=== PATIENT | male | born 1955 | race Caucasian/White ===

== ENCOUNTER 2020-06-03 10:39 | Outpatient (CLI) | payer BC, SELFPAY ==
--- NOTE | ~2020-06-03 | US_ITS ---
EXAMINATION: US venous doppler LE EXAM DATE: 06/03/2020 11:17 INDICATION: Right leg pain and swelling. TECHNIQUE: Multiple grayscale, color flow and Doppler images of the right lower extremity deep venous system obtained and reviewed. Comparison is made to prior examination from 05/02/2014. FINDINGS: RIGHT SIDE Common femoral: -------- Normal. Profunda femoral: ------- Normal. Femoral: Normal. Popliteal: Normal. Posterior tibial: --------- Normal. Peroneal: Normal. Gastrocnemius: Thrombosed. Soleus: Paired, both thrombosed. Greater saphenous: -----Nonocclusive thrombus. Lesser saphenous: ------ Not visualized. IMPRESSION: 1. Positive for right calf DVT. 2. Nonocclusive greater saphenous SVT. Reviewed, dictated and finalized at location A.
== END 2020-06-03 10:40 | disposition home or self-care (01) ==
LOC: ANHIMG 10:41
PROVIDERS: PCP Family Medicine; Visit Provider Orthopaedic Surgery
DX: R60.0 Localized edema (principal); I82.461 Acute embolism and thrombosis of right calf muscular vein
CPT/HCPCS: 93971

== ENCOUNTER 2020-06-03 11:46 | Emergency (ER) | payer BC, SELFPAY ==
[2020-06-03 11:54] VITALS: BP 154/92; PULSE 77; RESP 17; TEMP 37.1; O2SAT 100
[2020-06-03 12:17] LABS: Basophils Absolute Auto 0.1 K/mm3 (0.0-0.1); Basophils Percent Auto 0.8 % (0.2-1.2); Eosinophils Absolute Auto 0.2 K/mm3 (0-0.3); Eosinophils Percent Auto 1.9 % (0-4.4); Hematocrit 44.3 % (42.0-52.0); Hemoglobin 14.8 g/dL (14.0-18.0); Immature Granulocyte Absolute 0.02 K/mm3 (0.00-0.031); Immature Granulocyte Percent A 0.3 % (0-0.5); Lymphocytes Absolute Auto 2.27 K/mm3 (0.9-3.2); Lymphocytes Percent Auto 29.3 % (18.3-44.2); Mean Corpuscular HGB Conc 33.4 g/dl (32-36); Mean Corpuscular Hemoglobin 30.3 pg (26-34); Mean Corpuscular Volume 90.8 fl (80-100); Monocytes Absolute Auto 0.8 K/mm3 (0.1-0.6); Monocytes Percent Auto 9.8 % (2.6-8.5); Neutrophils Absolute Auto 4.5 K/mm3 (1.3-6.7); Neutrophils Percent Auto 57.9 % (45.5-73.1); Platelet Count Result 207 k/mm3 (150-375); Red Blood Count 4.88 M/mm3 (4.6-6.20); Red Cell Distribution Width 13.6 % (11.5-14.5); White Blood Count 7.8 K/mm3 (4.5-10.0)
[2020-06-03 12:28] LABS: INR 0.9; Partial Thromboplastin Time 30.3 SECONDS (22.3-36.8); Prothrombin Time 12.2 Seconds (11.1-14.7)
[2020-06-03 12:30] VITALS: BP 156/70; PULSE 72; RESP 14; O2SAT 98
[2020-06-03 12:30] LABS: Anion Gap 10.7 mmol/L (7-16); Blood Urea Nitrogen 12 mg/dL (9-20); Calcium 9.8 mg/dL (8.4-10.2); Carbon Dioxide 24 mmol/L (22-30); Chloride 107 mmol/L (98-107); Estimated CRCL calculation 102 ml/min; Estimated Glomerular Filt Rate > 60; Glucose 99 mg/dL (75-110); Potassium 4.7 mmol/L (3.4-5.0); Sodium 137 mmol/L (137-145)
--- NOTE | 2020-06-03 12:30 | ED.GENADULT ---
HPI - General Adult General Chief complaint: Unspecified <Bennett Holloway PA-C - Last Filed: 06/03/20 13:49> Stated complaint: dx with dvt [place] from [place] <Bnenett Holloway PA-C - Last Filed: 06/03/20 13:49> Time Seen by Provider: 06/03/20 11:50 <Bennett Holloway PA-C - Last Filed: 06/03/20 13:49> Source: patient <Bennett Holloway PA-C - Last Filed: 06/03/20 13:49> Mode of arrival: ambulatory <Bennett Holloway PA-C - Last Filed: 06/03/20 13:49> Limitations: no limitations <Bennett Holloway PA-C - Last Filed: 06/03/20 13:49> History of Present Illness HPI narrative: Patient is a 64-year-old male who presents to emergency department for evaluation of DVT in the right leg diagnosed in the imaging center patient notes that he has been having pain in this leg and was following with orthopedist for evaluation of his pain patient notes aching pain made worse with touch and activity patient otherwise resting comfortably in the room upon arrival in no distress denies any chest pain numbness tingling or other complaints <Bennett Holloway PA-C - Last Filed: 06/03/20 13:49> Related Data Home medications: Home Medications Medication Instructions Recorded Confirmed lisinopril 12/08/19 <Bennett Holloway PA-C - Last Filed: 06/03/20 13:49> Allergies/adverse reactions: Allergies Allergy/AdvReac Type Severity Reaction Status Date / Time No Known Allergies Allergy Unverified 10/16/17 06:06 <Bennett Holloway PA-C - Last Filed: 06/03/20 13:49> Review of Systems Review of Systems: All systems reviewed & are unremarkable except as noted in HPI and below <Bennett Holloway PA-C - Last Filed: 06/03/20 13:49> [facility] Past Medical History Medical History: Medical History (Updated 06/03/20 @ 12:33 by Bennett Holloway PA-C) Hypertension <Bennett Holloway PA-C - Last Filed: 06/03/20 13:49> Surgical History Surgical History: Surgical History History of orthopedic surgery <Bennett Holloway PA-C - Last Filed: 06/03/20 13:49> Social History Social History: Social History (Updated 06/03/20 @ 12:32 by Bennett Holloway PA-C) Smoking status: Never smoker Gender identity (if verbalized by the patient): Male <Bennett Holloway PA-C - Last Filed: 06/03/20 13:49> Exam Narrative: Exam Narrative: GENERAL: Well-appearing, well-nourished, and in no acute distress. HEAD: Normocephalic, atraumatic. EYES: PERRLA and EOMI. ENT: Nares clear, no rhinorrhea or epistaxis. Mucous membranes moist. CHEST: Clear to auscultation. No respiratory distress. No wheezes rales or rhonchi HEART: Regular rate and rhythm. No murmur heard. Normal peripheral pulses. EXTREMITIES: Right leg slightly more swollen than the left at the level of the calf patient with minimal tenderness of the right calf on palpation no tenderness of the left leg noted SKIN: Warm, dry, no rash. NEURO: No focal deficits. Alert and oriented x3. Normal speech and gait. Cranial nerves II through XII grossly intact PSYCH: Normal mood and affect. <Bennett Holloway PA-C - Last Filed: 06/03/20 13:49> Course Vital Signs Vital signs: Vital Signs Temperature 37.1 C 06/03/20 11:54 Pulse Rate 77 06/03/20 11:54 Respiratory Rate 17 06/03/20 11:54 Blood Pressure 154/92 H 06/03/20 11:54 Pulse Oximetry 100 06/03/20 11:54 Temperature 37.1 C 06/03/20 11:54 Pulse Rate 70 06/03/20 13:20 Respiratory Rate 12 06/03/20 13:20 Blood Pressure 154/70 H 06/03/20 13:20 Pulse Oximetry 99 06/03/20 13:20 <Bennett Holloway PA-C - Last Filed: 06/03/20 13:49> Vital Signs Temperature 37.1 C 06/03/20 11:54 Pulse Rate 77 06/03/20 11:54 Respiratory Rate 17 06/03/20 11:54 Blood Pressure 154/92 H 06/03/20 11:54 Pulse Oximetry 100 06/03/20 11:54 Temperature 37.1 C 06/03/20 11:54 Pulse Rate
[2020-06-03 13:20] VITALS: BP 154/70; PULSE 70; RESP 12; O2SAT 99
== END 2020-06-03 14:30 | disposition home or self-care (01) ==
PROVIDERS: Emergency Medicine Emergency Medical Services; Emergency Provider Emergency Medicine; PCP Family Medicine
DX: I82.401 Acute embolism and thrombosis of unspecified deep veins of right lower extremity (principal); I10 Essential (primary) hypertension
CPT/HCPCS: 36415; 80048; 85025; 85610; 85730; 99283

== ENCOUNTER 2020-08-31 10:28 | Outpatient (CLI) | payer BC, SELFPAY ==
--- NOTE | ~2020-08-31 | CT_ITS ---
EXAMINATION: CTA chest PE protocol DATE: 08/31/2020 11:18 INDICATION: Right-sided chest pain. Deep venous thrombosis. TECHNIQUE: Computed tomography (CT) pulmonary angiogram of the chest was performed with 100 mL Omnipa que-350 intravenous contrast. Additional 3D reconstructions utilizing coronal maximum intensity proje ction (MIP) were performed. Automated exposure control and iterative reconstruction technique were em ployed. The dose-length product was 692.60 mGy-cm. COMPARISON: None FINDINGS: Excellent contrast opacification of the pulmonary arteries. There is mild streak artifact from dense contrast in the superior vena cava and right atrium. Minimal scattered respiratory motion artifact wh ich does not significantly limit evaluation. No pulmonary embolism. 6 mm triangular nodule, likely an intrafissural lymph node along the anterior margin of the right minor fissure. No pneumonia, pulmona ry edema or pleural effusion. Heart size is normal. No pericardial effusion. Thoracic aorta is normal in caliber with no dissection. No pathologically enlarged thoracic lymphadenopathy. 1 cm low-attenua tion right adrenal adenoma. 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 Mild thoracic spondylosis. IMPRESSION: 1. No pulmonary embolism or other acute cardiopulmonary disease. 2. 6 mm nodule along the right minor fissure most likely an intrafissural lymph node. If the patient is low risk for lung cancer, no follow-up is needed. If the patient is high risk (i.e., history of sm oking or asbestos or significant radiation exposure), could consider optional low-dose noncontrast est CT in 12 months. Reviewed, dictated and finalized at location A. IMPRESSION: 1. No pulmonary embolism or other acute cardiopulmonary disease. 2. 6 mm nodule along the right minor fissure most likely an intrafissural lymph node. If the patient is low risk for lung cancer, no follow-up is needed. If t he patient is high risk (i.e., history of smoking or asbestos or significant ra diation exposure), could consider optional low-dose noncontrast chest CT in 12 months.
[2020-08-31 11:11] LABS: Estimated Glomerular Filt Rate > 60
== END 2020-08-31 10:29 | disposition home or self-care (01) ==
PROVIDERS: PCP Family Medicine; Visit Provider Family Medicine
DX: R07.89 Other chest pain (principal); I82.4Z9 Acute embolism and thrombosis of unspecified deep veins of unspecified distal lower extremity; R91.8 Other nonspecific abnormal finding of lung field
CPT/HCPCS: 71275; Q9967

== ENCOUNTER 2020-10-09 01:28 | Outpatient (CLI) | payer BC, SELFPAY ==
[2020-10-09 21:24] LABS: SARS-CoV-2 RNA PCR Negative
== END 2020-10-09 01:29 | disposition home or self-care (01) ==
LOC: ANHCOVIDDT 01:28
PROVIDERS: PCP Family Medicine; Visit Provider Internal Medicine Gastroenterology
DX: Z01.812 Encounter for preprocedural laboratory examination (principal); Z20.828 Contact with and (suspected) exposure to other viral communicable diseases
CPT/HCPCS: 87635; C9803; U0003

== ENCOUNTER 2020-10-12 00:46 | Day surgery (SDC) | payer BC, SELFPAY ==
[2020-09-30 14:42] VITALS: BMI 32.8
[2020-10-12 07:54] VITALS: BP 137/87; PULSE 109; RESP 20; TEMP 36.9; O2SAT 98; BMI 32.1
[2020-10-12] MEDS: LACTATED RINGERS 1,000 ML 150 ML IV CONT (08:07)
--- NOTE | 2020-10-12 08:14 | WPDGICN ---
Assessment and Plan Assessment and plan (1) Encounter for screening colonoscopy: Code(s): Z12.11 - Encounter for screening for malignant neoplasm of colon Status: Acute Assessment and Plan: Patient presents for screening colonoscopy. Appears to be at average risk for colon polyps. Further recommendations will be given after endoscopy. GI Consult Note Consult date/time: 10/12/20 08:14 HPI: Aaron Burt is a 65 year old male Seen in evaluation at the request of Dr. Kem Cheema. patient presents for screening colonoscopy. His current weight appetite bowel movements are normal. He denies abdominal pain. He has had no blood in his stools. Family history is noncontributory. Review of Systems Review of Systems: All systems reviewed & are unremarkable except as noted in HPI and below PMFSH Past Medical History Medical History (Updated 10/12/20 @ 08:15 by Lorenzo Gonzales MD) Hypertension Surgical History Surgical History History of orthopedic surgery Social History Social History (Updated 06/03/20 @ 12:32 by Bennett Holloway PA-C) Smoking status: Never smoker Living arrangements: with family Gender identity (if verbalized by the patient): Male Spiritual care concerns: No Meds Home Medications and Allergies Home Medications Medication Instructions Recorded Confirmed Type lisinopril 10 mg PO DAILY 12/08/19 09/30/20 History aspirin [Aspirin Low Dose] 81 mg PO DAILY 09/30/20 09/30/20 History Allergies Allergy/AdvReac Type Severity Reaction Status Date / Time No Known Allergies Allergy Verified 10/12/20 07:53 Vital Signs Vital Signs - 24 hr 10/12/20 07:54 Temperature 98.5 F Pulse Rate 109 H Respiratory Rate 20 Blood Pressure 137/87 Pulse Oximetry 98 Exam Narrative: Exam Narrative: Physical exam reveals patient be alert. Vital signs stable. HEENT exam unremarkable. Lungs are clear to auscultation and percussion. Heart is without murmur or extra sounds. Abdominal exam bowel sounds are present soft nontender with no organomegaly. Digital external rectal exam is normal.
--- NOTE | 2020-10-12 08:20 | WPDANESEPPF ---
Anes - Initial Pre Proc Eval Procedure: Operation Date: 10/12/20 09:00 Proposed Procedures p Screening Colonoscopy - Lorenzo Gonzales MD Date/Time: 10/12/20 08:20 Surgeon: Lorenzo Gonzales MD Pre Op Diagnosis: Neoplasm Screening Patient Data Age: 65 Gender: M Height: 5 ft 11 in Weight: 104.6 kg Last Vital Signs Temp 98.5 F 10/12/20 07:54 Pulse 109 H 10/12/20 07:54 Resp 20 10/12/20 07:54 BP 137/87 10/12/20 07:54 Pulse Ox 98 10/12/20 07:54 Allergies Allergy/AdvReac Type Severity Reaction Status Date / Time No Known Allergies Allergy Verified 10/12/20 07:53 Home Medications Medication Instructions Recorded Confirmed Type lisinopril 10 mg PO DAILY 12/08/19 09/30/20 History aspirin [Aspirin Low Dose] 81 mg PO DAILY 09/30/20 09/30/20 History Patient hx anesthesia problems: none Family hx anesthesia problems: none [facility] Past Medical History Medical History (Updated 10/12/20 @ 08:15 by Lorenzo Gonzales MD) Hypertension Surgical History Surgical History History of orthopedic surgery Social History Social History (Updated 06/03/20 @ 12:32 by Bennett Holloway PA-C) Smoking status: Never smoker Living arrangements: with family Gender identity (if verbalized by the patient): Male Spiritual care concerns: No Anes - Eval Final PreProcedure Day of Procedure 10/12/20 08:20 Patient weight: overweight Heart: regular rate and rhythm Lungs: clear to auscultation Airway: Mallampati scale class II Neurological: alert and oriented Last oral intake: >/= 8 hours ASA classification: III Emergent: no Anesthetic plan: proceed Anesthesia type and monitoring: general GIVS and standard monitoring Informed Consent: The patient's anesthetic plan and its attendant risks and benefits were discussed with the patient/family/POA. Questions were solicited and answers provided to the satisfaction of the patient/family/POA.
[2020-10-12] MEDS: SIMETHICONE ORAL SUSPENSION 20 MG/0.3 ML 30 ML BOTTLE 0.6 ML IRRIGATION (08:38)
[2020-10-12 08:46] VITALS: BP 108/70; PULSE 90; RESP 15; O2SAT 97
[2020-10-12 08:56] VITALS: BP 114/77; PULSE 80; RESP 12; O2SAT 96
[2020-10-12 09:06] VITALS: BP 118/79; PULSE 78; RESP 20; O2SAT 97
== END 2020-10-12 09:12 | disposition home or self-care (01) ==
PROVIDERS: PCP Family Medicine; Visit Provider Internal Medicine Gastroenterology
PROC: 0DJD8ZZ Inspection of Lower Intestinal Tract, Via Natural or Artificial Opening Endoscopic (ICD-10-PCS; CPT 45378; principal; 2020-10-12 09:00)
DX: Z12.11 Encounter for screening for malignant neoplasm of colon (principal); K57.30 Diverticulosis of large intestine without perforation or abscess without bleeding; K64.8 Other hemorrhoids; I10 Essential (primary) hypertension
CPT/HCPCS: 45378; J2001; J2704; J7120

== ENCOUNTER 2022-02-19 12:00 | Emergency (ER) | payer OTHER, MEDICARE, SELFPAY ==
[2022-02-19 12:09] VITALS: BP 137/84; PULSE 77; RESP 16; TEMP 36.4; O2SAT 99
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
== END 2022-02-19 12:48 | disposition home or self-care (01) ==
PROVIDERS: Emergency Provider Nurse Practitioner; PCP Family Medicine
DX: S16.1XXA Strain of muscle, fascia and tendon at neck level, initial encounter (principal); S39.012A Strain of muscle, fascia and tendon of lower back, initial encounter; S46.911A Strain of unspecified muscle, fascia and tendon at shoulder and upper arm level, right arm, initial encounter; V87.7XXA Person injured in collision between other specified motor vehicles (traffic), initial encounter; I10 Essential (primary) hypertension; Z86.718 Personal history of other venous thrombosis and embolism; Z96.653 Presence of artificial knee joint, bilateral; Z86.711 Personal history of pulmonary embolism; Z79.82 Long term (current) use of aspirin
CPT/HCPCS: 99213; G0463

== ENCOUNTER 2022-02-20 10:19 | Emergency (ER) | payer OTHER, MEDICARE, SELFPAY ==
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
[2022-02-20 10:24] VITALS: BP 131/78; PULSE 77; RESP 16; TEMP 36.6; O2SAT 99
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
== END 2022-02-20 11:55 | disposition home or self-care (01) ==
PROVIDERS: Emergency Provider Nurse Practitioner; PCP Family Medicine
DX: S16.1XXA Strain of muscle, fascia and tendon at neck level, initial encounter (principal); S46.911A Strain of unspecified muscle, fascia and tendon at shoulder and upper arm level, right arm, initial encounter; S39.012A Strain of muscle, fascia and tendon of lower back, initial encounter; V49.40XA Driver injured in collision with unspecified motor vehicles in traffic accident, initial encounter; V87.7XXA Person injured in collision between other specified motor vehicles (traffic), initial encounter; I10 Essential (primary) hypertension; Z96.653 Presence of artificial knee joint, bilateral; Z86.711 Personal history of pulmonary embolism; Z86.718 Personal history of other venous thrombosis and embolism
CPT/HCPCS: 72050; 72100; 73030; 99214; G0463

== ENCOUNTER 2022-03-04 07:14 | Outpatient (CLI) | payer MEDICARE, OTHER, SELFPAY ==
--- NOTE | ~2022-03-04 | MR_ITS ---
EXAMINATION: MR shoulder RT wo con DATE: 03/04/2022 07:54 INDICATION: Right shoulder trauma TECHNIQUE: Magnetic resonance imaging (MRI) of the right shoulder was performed without intravenous c ontrast. Sequences included axial PD-weighted FS FSE, coronal oblique PD-weighted FS FSE, coronal obl ique T2-weighted FS FSE, sagittal PD-weighted FS FSE, and sagittal T1-weighted SE. COMPARISON: None. FINDINGS: Coracoacromial arch: The acromion undersurface is curved in morphology (type II). Small subacromial spur along the acromia l insertion of the otherwise normal coracoacromial ligament. Moderate acromioclavicular osteoarthriti s with additional small inferiorly directed osteophytes. Rotator cuff: Severe supraspinatus and infraspinatus tendinopathy with full-thickness tear extending approximately 2.5 cm AP along the inner tuberosity footplate of the supraspinatus and anterior third of the infrasp inatus tendon. The tear measures approximately 3.5 cm medial to lateral. The tear extends more traffic checker iorly as a severe articular sided tear of the more posterior infraspinatus tendon involving at least one half of the tendon thickness. The teres minor tendon is normal. Moderate subscapularis tendinopat hy with tear involving the cephalad three quarters of the lesser tuberosity footplate of the subscapu sonia tendon. The tendon remains tethered laterally by the intact caudal-most aspect of the tendon as well as a few of the more cephalad bursal sided fibers which remains contiguous with the intact lima sverse humeral ligament. There is medial retraction and mild atrophy of the subscapularis and suprasp inatus muscle bellies. Biceps tendon, glenoid labrum and glenohumeral cartilage: Severe tendinopathy of the intra-articular portion of the long head biceps tendon which is subluxed a cross the scapularis tendon tear defect at the lesser tuberosity. There is a superior, anterior to po sterior tear of the glenoid labrum (SLAP tear). Additional degenerative tearing along the inferior gl enoid labrum. Small marginal osteophytes along the rim of the glenoid. Mild partial-thickness cartila ge loss with smooth chondral surface along the anterior aspect of the humeral head. Fluid: Moderate-sized glenohumeral joint effusion with prominent synovitis at the posterior and axillary rec esses. Fluid extends from the glenohumeral joint space through the full-thickness rotator cuff tear d efect into the subacromial/subdeltoid bursa. No loose osteochondral bodies. Bones: Normal marrow signal with no edema, fracture or abnormal marrow replacing process. Mild hypertrophic change along the lesser and greater tuberosities. IMPRESSION: 1. Large rotator cuff tear, full-thickness of the supraspinatus and anterior most infraspinatus tendo n progressing into the more posterior infraspinatus tendon as a severe articular sided tear and anter iorly across rotator cuff interval to involve the cephalad three quarters of the lesser tuberosity fo otplate of the subscapularis tendon. 2. Mild glenohumeral osteoarthritis with tearing of both the superior and inferior glenoid labrum. 3. Subluxation of the long head biceps tendon across the lesser tuberosity tear defect with severe te ndinopathy of the intra-articular portion of the long head biceps tendon. 4. Moderate acromioclavicular osteoarthritis. Reviewed, dictated and finalized at location A. IMPRESSION: 1. Large rotator cuff tear, full-thickness of the supraspinatus and anterior mo st infraspinatus tendon progressing into the more posterior infraspinatus tendo n as a severe articular sided tear and anteriorly across rotator cuff interval to involve the cephalad three quarters of the lesser tuberosity footplate of th e subscapularis tendon. 2. Mild
== END 2022-03-04 07:15 ==
PROVIDERS: PCP Orthopaedic Surgery; Visit Provider Orthopaedic Surgery
DX: M25.511 Pain in right shoulder (principal); M75.101 Unspecified rotator cuff tear or rupture of right shoulder, not specified as traumatic; M19.011 Primary osteoarthritis, right shoulder; S43.431A Superior glenoid labrum lesion of right shoulder, initial encounter; S43.081A Other subluxation of right shoulder joint, initial encounter
CPT/HCPCS: 73221

== ENCOUNTER 2022-05-26 07:30 | Outpatient (RCR) | payer MEDICARE, OTHER, SELFPAY ==
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
--- NOTE | 2022-05-26 08:02 | PTOPEVAL ---
PHYSICAL THERAPY DISCHARGE NOTE Thank you for referring Aaron Burt to [facility].? Please review, sign, date and return this plan of care [facility]. I agree with and certify that the following plan of care is medically necessary. Referring Physician Date Attending Provider: Beau Rivera, MD Diagnosis right rotator cuff tendinopathy Onset 02/13/22 Subjective Information States that overall he is Query Text:As Reported By Patient/ doing better. States that Family there is always an underlying lingering pain and then every now and then he will do something that have a more severe pain. Self Report Pain Assessment Right Shoulder(s) Reported Pain Level 2 Other Pain Aggravating Factors reaching over head crossing midline will increase pain Pain Score Pain Score 2: Self Report Interventions Used Interventions Used By Clinicians Exercise Upper Extremity Range of Motion General Upper Extremity Range of Motion Gross Upper Extremity Range of Motion generally WFL; tight at end Comments ranges but generally feels good; bilaterally symmetrical; good scapular stability Upper Extremity Muscle Strength Testing Scapular/Shoulder Right Scapular Retraction - Middle Trapezius 3+ Fair + Scapular Retraction - Lower Trapezius 3+ Fair + Shoulder Flexion Strength 4 Good Shoulder Abduction Strength 5 Normal Shoulder Medial Rotation Strength 5 Normal Shoulder Lateral Rotation Strength 4 Good Shoulder Strength Comments painful to flexion (deltoid and long head of biceps tendon) and external rotation (infraspinatus); 5/5 biceps and triceps Palpation improved muscle bulking of right supraspinatus and infraspinatus PT Clinical Summary Aaron is a 66 yo male presenting to outpatient physical therapy with subacute right shoulder pain secondary to rotator cuff tear and biceps tendinopathy. Today he demonstrates signficantly improved scapulohumeral rhythm without scapular winging and improved overall strength of the shoulder. There does continue to be anterior shoulder pain when anterior
== END 2022-05-26 09:49 | disposition home or self-care (01) ==
LOC: ANHPT 07:30
PROVIDERS: PCP Orthopaedic Surgery; Visit Provider Orthopaedic Surgery Sports Medicine
DX: M25.511 Pain in right shoulder (principal)
CPT/HCPCS: 97110; 97112; 97140; 97162

== ENCOUNTER 2023-06-07 08:31 | Outpatient (CLI) | payer MEDICARE, OTHER, SELFPAY ==
--- NOTE | ~2023-06-07 | CT_ITS ---
EXAMINATION: CT brain wo con DATE: 06/07/2023 08:46 INDICATION: Headache for 3 weeks. Follow-up of transient ischemic attack. TECHNIQUE: Computed tomography (CT) of the head was performed without intravenous contrast. The mA wa s adjusted according to patient size. Iterative reconstruction technique was employed. Exam dose: 60 5.33 mGy-cm total exam DLP. COMPARISON: None FINDINGS: Bilateral carotid siphon internal carotid artery calcifications. There is nonspecific diminished attenuation of cerebral white matter, likely due to chronic small ves tash ischemic changes. No intracranial mass lesion or hemorrhage or cerebrovascular accident is detected. No midline shift o r mass effect. No subdural or epidural hematoma. Small posterior right maxillary sinus mucous retention cyst or polyp. The included paranasal sinuses and mastoid air cells otherwise normal in appearance. No fracture or bone destruction of the cranial vault. IMPRESSION: Cerebral atherosclerosis and chronic small vessel ischemic changes of the cerebral white matter Reviewed, dictated and finalized at [facility]. Reviewed, dictated and finalized at location B.
== END 2023-06-07 08:32 | disposition home or self-care (01) ==
PROVIDERS: PCP Family Medicine; Visit Provider Family Medicine
DX: G45.9 Transient cerebral ischemic attack, unspecified (principal); I67.2 Cerebral atherosclerosis; I67.82 Cerebral ischemia; R51.9 Headache, unspecified
CPT/HCPCS: 70450

== ENCOUNTER 2025-07-15 14:42 | Emergency (ER) | payer MEDICARE, OTHER, SELFPAY ==
--- OUTSIDE RECORDS SUMMARY | 2025-07-15 14:54 | XMS_ITS | Clinical Summary ---
Author Organization [facility] Address [address] [place] [address] Care Team Providers Care Plate Slitter And Inspector Name Role Phone Homer Cheema MD Primary Care Provider Source Comments [facility],non-owned Affiliates and Associated Physician Practices is amultiple site organization consisting of ambulatory clinics and hospital sitesin [place], [place], [place] and [place]. This disclosure is being madepursuant to the Care Everywhere program and may not contain all information available regarding this patient. Last updated 18.[facility] Allergies No known active allergies Medications * Be aware that medications may not be up to date on this document. Alwaysverify current medications with the patient. amLODIPine (NORVASC) 5 MG tablet Take 5 mg by mouth once daily 03/28/2022 Active aspirin EC (ECOTRIN) 81 MG tablet Take 81 mg by mouth once daily Active lisinopril (PRINIVIL; ZESTRIL) 30 MG tablet Take 30 mg by mouth once daily 03/28/2022 Active naproxen sodium (ALEVE) 220 MG tablet Take 220-440 mg by mouth 2 times daily as needed for Pain Active Active Problems Problem Noted Date Diagnosed Date Lipodermatosclerosis 04/29/2022 Chronic left shoulder pain 04/06/2022 Acute post-operative pain 04/06/2022 Closed fracture of acromial process of scapula 0 04/06/2022 Contusion of knee 04/06/2022 Localized, primary osteoarthritis of hand 2021 Osteoarthrosis 04/06/2022 Radiotherapy follow-up 04/06/2022 Shoulder joint pain 04/06/2022 Rupture long head biceps tendon, left, subsequen t encounter 04/06/2022 Pain in joint of right shoulder 02/24/2022 Chest pain 09/28/2020 DVT (deep venous thrombosis) 09/28/2020 HTN (hypertension), benign 09/28/2020 Splenic artery aneurysm 09/28/2020 Acute deep vein thrombosis ( DVT) of calf muscle vein of right lower extremity 06/19/2020 Chronic venous insufficiency 06/19/2020 Left rotator cuff tear 08/04/2016 Complete rotator cuff tear of left shoulder 07/14 Social History Tobacco Use Types Packs/Day Years Used Date Smoking Tobacco: Never Smokeless Tobacco: Never Alcohol Use Standard Drinks/Week Comments Never 0 (1 standard drink = 0.6 oz pur e alcohol) Sex and Gender Information Value Date Recorded Sex Assigned at Not on file Legal Sex Male 3:36 PM CDT Gender Identity Not on file Sexual Orientation Not on file Last Filed Vital Signs Vital Sign Reading Time Taken Comments Blood Pressure 139/69 08/04/2016 3:15 PM CDT Pulse 83 08/04/2016 3:15 PM CDT Temperature 36.6 C (97.8 F) 08/04/2016 4:20 PM CDT Respiratory Rate 23 08/04/2016 4:20 PM CDT Oxygen Saturation 90% 08/04/2016 4:20 PM CDT Inhaled Oxygen Concentration - - Weight 95.3 kg (210 lb) 08/08/2017 12:33 PM CDT Height 177.8 cm (5' 10) 06/06/2017 11:58 AM CDT Body Mass Index 30.13 06/06/2017 11:58 AM CDT Plan of Treatment Health Maintenance Due Date Last Done Comments COLOGUARD (AGES 45-75) - COL ON CA SCREENING 1956 COLON MONITORING 1956 COLONOSCOPY - COLON CA SCREENING 1956 CT COLONOGRAPHY - COLON CA SCREENING 1956 Colorectal Cancer Screening 1956 FIT - COLON CA SCREENING 1956 FLEX SIG - COLON CA SCREENING 1956 HEPATITIS C SCREENING 09/25/1974 DTAP/TDAP/TD VACCINES (1 - Tdap) 1975 PNEUMOCOCCAL VACCINE 50+ (1 of 1 - PCV) 2006 ZOSTER VACCINE (1 of 2) 2006 COVID-19 VACCINE (1 - 2023-2 5 season) 2024 DEPRESSION SCREENING 11/13/2024 INFLUENZA VACCINE (#1) 2025 LIPID TESTING 09/28/2025 09/28/2020 Respiratory Syncytial Virus (RSV) Vaccine Pt: or over 60 yrs (1 - 1-dose 75+ series) 2031 HEPATITIS B VACCINE Aged Out No longe r eligible based on patient's age to complete this topic HIB VACCINE Aged Out No longer eligi ble based on patient's age to complete this topic HPV VACCINE Aged Out No longer eligi ble based on patient's age to complete this topic MENINGOCOCCAL (Group B) VACC INE SHARED DECISION-MAKING Aged Out No longer eligibl e based on patient's age to complete this topic MENINGOCOCCAL GROUPS A/C/Y/W VACCINE Aged Out No longer eligible b ased on patient's age to complete this topic Insurance MEDICARE MEDICARE [facility] [place] [address] Care Teams Plate Slitter And Inspector Relationship Specialty Start Date End Date Homer Cheema MD [address] [place] [address] PCP - General Family Medicine 07/25/16
--- OUTSIDE RECORDS SUMMARY | 2025-07-15 14:54 | XMS_ITS | Clinical Summary ---
Author Organization [facility] [address] [place] [address] [place] [id number] Care Team Providers Care Information Director Name Role Phone Mc Arrieta MD Primary Care Provider [phone] Allergies No known active allergies Medications lisinopriL (PRINIVIL) 10 mg tablet Take 10 mg by mouth daily. Active amLODIPine (NORVASC) 5 mg tablet 03/28/2022 Active aspirin (ECOTRIN EC) 81 mg Tablet, Delayed Release (E.C.) Take 81 mg by mouth daily. Active naproxen sodium (ALEVE) 220 mg Tablet Take 220-440 mg by mouth 2 times daily as needed. Active Active Problems Problem Noted Date Diagnosed Date Lipodermatosclerosis 04/29/2022 Acute deep vein thrombosis ( DVT) of calf muscle vein of right lower extremity 06/19/2020 Chronic venous insufficiency 06/19/2020 Social History Tobacco Use Types Packs/Day Years Used Date Smoking Tobacco: Never Smokeless Tobacco: Never Alcohol Use Standard Drinks/Week Comments Never 0 (1 standard drink = 0.6 oz pur e alcohol) Sex and Gender Information Value Date Recorded Sex Assigned at Not on file Legal Sex Male 4:13 PM CDT Gender Identity Not on file Sexual Orientation Not on file Last Filed Vital Signs Vital Sign Reading Time Taken Comments Blood Pressure 126/77 04/29/2022 10:25 AM CDT Pulse 80 04/29/2022 10:25 AM CDT Temperature - - Respiratory Rate - - Oxygen Saturation 100% 04/29/2022 10:25 AM CDT Inhaled Oxygen Concentration - - Weight 97.1 kg (214 lb) 04/29/2022 10:25 AM CDT Height 180.3 cm (5' 11) 04/29/2022 10:25 AM CDT Body Mass Index 29.85 04/29/2022 10:25 AM CDT Plan of Treatment Health Maintenance Due Date Last Done Comments DTAP/TDAP/TD VACCINES (1 - Tdap) 1975 COLORECTAL SCREENING 2001 Colorectal Cancer Screening 2001 FIT-DNA Q 3 years 2001 FIT/FOBT Q 1 year 2001 Flex Sig/CT Colonography Q 5 years 2001 PNEUMOCOCCAL VACCINE 50+ YEARS (1 of 1 - PCV) 09/29/20 06 ZOSTER VACCINE (1 of 2) 2006 INFLUENZA VACCINE (#1) 2025 RSV VACCINE (60+ or ) (1 - 1-dose 75+ series) 2031 Insurance MEDICARE PART A AND B [facility] Care Teams Information Director Relationship Specialty Start Date End Date Mc Arrieta MD [address] [facility] [address] [place] [address] PCP - General Family Practice 04/29/22
[2025-07-15 14:58] VITALS: BP 127/80; PULSE 93; RESP 18; TEMP 37; O2SAT 95
--- NOTE | 2025-07-15 15:10 | ED_ITS ---
HPI - Wound/Laceration General Chief Complaint: Wound/Laceration Stated Complaint: left finger cut Time Seen by Provider: 07/15/25 15:11 Source: patient and RN notes reviewed Mode of arrival: ambulatory Limitations: no limitations History of Present Illness HPI narrative: 69-year-old male presents Express Care complaining of laceration of left middle finger. Patient was opening a crate when he opened that and there was a sharp piece of metal that slice the back of his left middle finger. Since then the patient states he cannot get the bleeding under control to his left middle finger. Patient says the bleeding is controlled with direct pressure. Patient states his tetanus is updated last 5 years. Patient denies any other injuries. Related Data Home Medications ?Medication ?Instructions ?Recorded ?Confirmed ?Last Taken ?Type aspirin 81 mg tablet,delayed 81 mg PO DAILY 09/30/20 0 07/15/25 10/11/20 History release (Shannon Low Dose Aspirin) Allergies Allergy/AdvReac Type Severity Reaction Status Date / Time No Known Allergies Allergy Verified 07/15/25 14:43 Review of Systems 2 Review of Systems: CONSTITUTIONAL: Denies fever, chills, or sweats. EYES: Denies visual changes, redness, or discharge. ENT: Denies rhinorrhea, congestion, sore throat, or otalgia. CARDIOVASCULAR: Denies chest pain, palpitations, or edema. RESPIRATORY: Denies cough or dyspnea. GASTROINTESTINAL: Denies abdominal pain, nausea, vomiting, or diarrhea. GENITOURINARY: Denies dysuria or hematuria. SKIN: Denies rash or itching. Positive for wound. MUSCULOSKELETAL: Denies back pain, joint pain, or myalgia. NEUROLOGIC: Denies headache, numbness, or weakness. PSYCHIATRIC: Denies anxiety or depression. All other systems reviewed are negative, except as documented in HPI. FORMERLY [facility] Past Medical History Medical History Urge incontinence OAB (overactive bladder) History of pulmonary embolism Family history of prostate cancer History of DVT (deep vein thrombosis) Hypertension Surgical History Surgical History History of repair of left rotator cuff History of bilateral knee replacement History of orthopedic surgery Family History Family History Father Malignant neoplasm of prostate Hypertension Mother Lung cancer Sibling Hypertension Malignant neoplasm of prostate Social History Social History Social History: Smoking status: Never smoker Second hand tobacco smoke exposure: No Alcohol intake: never Substance use: never Substance use type: does not use Lack of Transportation: No Lack of Food: Never True Current Housing: I Have Housing Concerned About Future Housing: No Difficulty Paying Gas/Electric Bills: No Difficulty Paying for Meds: No Currently Unemployed: No Education: Decline to Answer Difficulty w/ Childcare or Family Care: No Living arrangements: with family Occupation/Education: occupation Gender identity (if verbalized by the patient): Male Sexual Orientation (if Verbalized by the Patient): Straight or Heterosexual Spiritual care concerns: No Comments At the time of my signature, I reviewed and agree with the nursing past medical, surgical, social, and family history. There is no relevant family history pertinent to the patient complaint. Exam 2 Narrative: GENERAL: This is a well-nourished, well-developed adult, in no apparent distress. They are non ill-appearing, nontoxic appearing. HEAD: normocephalic, atraumatic. EYES: Sclera clear/white. Conjunctiva normal. Vision is grossly intact. Extraocular movements intact EARS: External ears normal, Hearing grossly intact. NOSE: External nose normal , no rhinorrhea. THROAT: Mucous membranes moist, NECK: Neck supple, CARDIOVASCULAR: Regular rate and rhythm RESPIRATORY: Respiratory rate normal, respiratory effort nonlabored, no respiratory distress SKIN: Left middle finger: Skin flap present to the posterior distal finger near the DIP joint measuring approximately 0.5 cm x 1.5 cm. It is oozing blood. Bleeding controlled with direct pressure. Patient is able to flex and extend his left middle finger against resistance at the DIP, PIP, and MCP joint. Normal range of motion. Capillary refill less than 2 seconds at finger tip. Nail plate and nail bed intact. Neurovascular status intact distal to injury. Normal sensation. Left radial pulse 2 +and palpable. NEURO: awake, alert, and oriented to person, place and time. There were no obvious focal neurologic abnormalities. EXTREMITIES: No joint tenderness, effusion, or edema noted. Extrem: Hand/finger images: 1. Skin flap present area measuring approximately 0.5 cm x 1.5 cm. Overlying the DIP joint, no nail plate or nailbed involvement. Course Course Emergency Course: Portions of this record may have been created with voice recognition software Level of Care: Express Care Visit Vital Signs Vital signs: Vital Signs Temperature 98.6 F 07/15/25 14:58 Pulse Rate 93 07/15/25 14:58 Respiratory Rate 18 07/15/25 14:58 Blood Pressure 127/80 07/15/25 14:58 Pulse Oximetry 95 07/15/25 14:58 Oxygen Delivery Room Air 07/15/25 14:58 Temperature 98.6 F 07/15/25 14:58 Pulse Rate 93 07/15/25 14:58 Respiratory Rate 18 07/15/25 14:58 Blood Pressure 127/80 07/15/25 14:58 Pulse Oximetry 95 07/15/25 14:58 Oxygen Delivery Room Air 07/15/25 14:58 Reviewed Procedures Laceration Laceration 1: Date: 07/15/25 Time: 15:30 Site: hand (left middle finger) Side (If applicable): left Size (cm): 0.5 (0.5cm x 1.5cm flap) Description: flap Local Anesthetic: lidocaine 1% Amount of anesthesia used (mL): 2 Pre-repair: wound explored and irrigated extensively ====== Skin Level ====== Skin layer closed with: nylon Size (cm): 4-0 Number of sutures: 4 Technique: simple, interrupted (Hemostasis achieved with wound closure) ====== Subcutaneous Layer ====== ====== Muscle Layer ====== ====== Tendon Layer ====== Dressing: Semiocclusive dressing and metal finger splint. MDM - Wound/Laceration MDM Narrative Medical decision making narrative: Successful laceration. Skin flap the patient's left middle finger. For sutures were placed to anchor down the skin flap. Hemostasis achieved after suturing skin flap in place. Wound was irrigated extensively. Prophylactically treat patient with cephalexin. Patient given metal finger splint to keep finger straight since sutures are present over the PIP joint posteriorly. Neurovascular status intact distal to the injury. Patient has full function of his left middle finger distal to the injury. Patient's last tetanus was November 2019 according to records however patient has declined to update his tetanus. Patient is educated including but not limited to the benefit of the tetanus shot and is aware of the risk of refusing a tetanus shot. Patient referred to a hand specialist in the event that he develops complications to his finger. Discussed physical exam findings. Advised supportive measures and signs/symptoms to go to the ER. Pt is appropriate for outpt treatment and f/u. Differential Diagnosis Differential diagnosis: Likely laceration, avulsion of skin and other (Skin flap) Critical Care Time Critical Care Time Critical Care Time: No Discharge Plan Discharge Clinical Impression: Finger laceration Qualifiers: Encounter type: initial encounter Finger: middle finger Damage to nail status: without damage Foreign body presence: without foreign body Laterality: left Q ualified Code(s): S61.213A - Laceration without foreign body of left middle finger without damage to nail, initial encounter Patient Disposition: Home Condition: Stable Instructions: Antibiotic Form, Finger Laceration (ED) Additional Instructions: Your sutures will need to be removed in 10-14 days. Please keep it covered and dry for the next 24 hours after that you may leave the wound open to air recover with a semi occlusive dressing such as a Band-Aid are sterile gauze dressing. You May apply Vaseline to the wound daily. Wash the wound daily with mild soap and water. Wear the metal finger splint to keep your finger straight to avoid tearing the sutures open. Do not soak or scrub the wound. Avoid dirty water until the wound has healed completely. Take the cephalexin as directed. Follow-up PCP in 3-5 days. Follow-up with a hand specialist as needed for any issues with her finger. If you developed worsening redness, swelling, drainage, pain, fevers, nausea, vomiting or any serious concerns please go to the ER immediately. Patient Language: Tristanian Prescriptions: New cephalexin 500 mg capsule 500 mg PO Q6H 5 Days Qty: 20 0RF No Action gabapentin 300 mg capsule 300 mg PO BID Qty: 60 2RF amlodipine 10 mg tablet 10 mg PO DAILY Qty: 90 2RF aspirin [Shannon Low Dose Aspirin] 81 mg Tablet,Delayed Release (Dr/Ec) 81 mg PO DAILY lisinopril 40 mg tablet 40 mg PO DAILY Qty: 90 3RF solifenacin 10 mg tablet 10 mg PO DAILY Qty: 90 3RF Follow-up/Referrals: Caron Arshad MD [Physician, Plastic Surgery] Mc Arrieta MD [Primary Care Provider, [facility]] Time of Disposition: 15:47
== END 2025-07-15 15:50 | disposition home or self-care (01) ==
PROVIDERS: PCP Family Medicine
DX: S61.213A Laceration without foreign body of left middle finger without damage to nail, initial encounter (principal); W26.8XXA Contact with other sharp object(s), not elsewhere classified, initial encounter; N32.81 Overactive bladder; I10 Essential (primary) hypertension; Z86.718 Personal history of other venous thrombosis and embolism; Z86.711 Personal history of pulmonary embolism; Z96.653 Presence of artificial knee joint, bilateral; Z79.82 Long term (current) use of aspirin
CPT/HCPCS: 12001; 99213; G0463; J2003